=== PATIENT | female | born 1955 | race Caucasian/White ===

== ENCOUNTER 2016-06-16 05:30 | Day surgery (SDC) | payer BC ==
[2016-06-15 11:14] LABS: HEMATOCRIT 36.9 % (36.0-48.0); HEMOGLOBIN 12.2 g/dL (12-16); MCH 32.2 pg (26.0-34.0); MCHC 33.1 g/dL (31.0-37.0); MCV 97.4 fL (80.0-100.0); MEAN PLATELET VOLUME 9.4 fL (7.4-10.4); RBC 3.79 10x6/uL (4.00-5.40); RDW 12.5 % (11.5-14.5); WBC 9.2 10x3/uL (4.8-10.8)
[~2016-06-16] VITALS: Ht 165.1 cm; Wt 88.0 kg
[~2016-06-16 05:30] MED LIST: NATURE THROI PO; PROMETRIUM200 MG PO; PROTONIX40 MG PO
[2016-06-16 09:48] VITALS: BP 137/66; Ht 165.1 cm; Wt 88.0 kg
--- NOTE | 2016-06-16 13:01 | NUR ---
1300-RECEIVED PT FROM PACU AWAKE AND ALERT. VSS LEFT FOOT NUMB WITH BRISK CAP REFILL DRESSING CDI AND INTACT. ICE PACK APPLIED PT DENIES ANY N/V AND WATER GIVEN WILL CONTINUE TO MONITOR
--- NOTE | 2016-06-16 14:24 | NUR ---
IV DC WITH CATHER TIP INTACT
--- NOTE | 2016-07-18 13:17 | OP ---
PATIENT NAME: MIRIAM GARCIA MEDICAL RECORD: [id number] :57 LOCATION:D.OPS ADMISSION DATE: SURGEON: TAURUS JACOBSEN DATE OF OPERATION: 06/16/2016 SURGEON: Taurus Jacobsen DPM. PREOPERATIVE DIAGNOSIS: Raman neuroma, third intermetatarsal space, left foot. POSTOPERATIVE DIAGNOSIS: Raman neuroma, third intermetatarsal space, left foot. PROCEDURE: Excision of neuroma, left foot. ANESTHESIA: Local with monitored anesthesia care. HEMOSTASIS: Maintained on the field. ESTIMATED BLOOD LOSS: Minimal. MATERIALS: 3-0 Vicryl, 4-0 nylon. INJECTABLES: A 20 cc of 0.5% bupivacaine with epinephrine. The patient has longstanding history of pain associated with a neuroma within the third intermetatarsal space of the left foot. She is not improved with conservative care. We have discussed the surgical excision. We reviewed risks and benefits, complications were discussed, her questions were answered. She was consented for excision of neuroma, left foot. The patient was brought in the operating room and placed in the operating table in supine position. A timeout was called with Dr. Jacobsen, who identified the patient, the surgical site, and the surgery to be performed. Once appropriate anesthesia was obtained, the foot was prepped and draped in the usual aseptic manner. PROCEDURE: Excision of neuroma, left foot. Attention was directed to the dorsal aspect of the third intermetatarsal space where a 4-cm linear incision was made. This incision was carried deep through soft tissue with care being taken to retract all vital neurovascular structures. All bleeders were cauterized along the way. The deep transverse intermetatarsal ligament was then identified and sharply transected. The neuroma was then identified at this level. The nerve was then traced proximally as far possible into the intermetatarsal space and sharply transected with a fresh 15-blade. The distal aspect of the nerve was then dissected into the medial aspect of the fourth toe and the lateral aspect of the third toe. Each individual digital branches were then sharply transected. The neuroma was removed from the foot and passed from the field and it will be sent to pathology. The surgical site was then investigated for any remaining pathological tissue and none was noted. The surgical site was then irrigated with copious amounts of normal sterile saline via bulb syringe. The deep soft tissues and subQ were reapproximated and coapted utilizing 3-0 Vicryl. The skin was then reapproximated and coapted using 4-0 nylon. A OPERATIVE REPORT [id number] MIRIAM GARCIA dressing consisting of Xeroform, 4 x 4, Kerlix, and an Ernie bandage was applied to the left foot. Capillary refill time status post excision was immediate. The patient tolerated the procedure and anesthesia well and she left the operating room with vital signs stable. The patient was discharged home with instructions to ice and elevate the left foot. She will be dispensed a postop shoe to help offload the foot. She will follow up with me next week. She has my cell phone number for after hour difficulties and there were no complications with this procedure. TRANSINT:[id number] Voice Confirmation ID: [id number] DOCUMENT ID: [id number] TAURUS JACOBSEN at 1317 CC: [id number] DICTATION DATE: 06/16/16 1248 PRESCRIPTION CLERK: 06/16/16 [id number] [facility] 06/16/16 [facility] [address] [place] [address]
== END 2016-06-16 14:45 | disposition home or self-care (01) ==
LOC: D.OPS 05:30 → D.PAN 11:30 → D.OPS 11:30
PROVIDERS: Anesthesiology
DX: G57.62 Lesion of plantar nerve, left lower limb (principal)

== ENCOUNTER → 2016-12-01 16:53 | Outpatient (CLI) | payer BC ==
[2016-06-16 09:48] VITALS: BMI 32.3
== END | disposition home or self-care (01) ==
LOC: D.MAMMO 11-17 08:15
DX: Z12.31 Encounter for screening mammogram for malignant neoplasm of breast (principal)

== ENCOUNTER 2017-09-12 11:02 | Emergency (ER) | payer BC ==
[~2017-09-12] VITALS: Ht 165.1 cm; Wt 82.7 kg
[2017-09-12 11:21] VITALS: Ht 165.1 cm; Wt 82.7 kg
[2017-09-12 11:59] LABS: BASOPHILS 0.4 % (0-2); EOSINOPHILS 1.1 % (0-7); HEMATOCRIT 39.9 % (36.0-48.0); HEMOGLOBIN 13.9 g/dL (12-16); IMMATURE GRANULOCYTES 0.1 % (0-5); LYMPHOCYTES 14.5 % (15-50); MCH 29.1 pg (26.0-34.0); MCHC 34.8 g/dL (31.0-37.0); MCV 83.5 fL (80.0-100.0); MEAN PLATELET VOLUME 10.5 fL (7.4-10.4); MONOCYTES 9.9 % (2-11); RBC 4.78 10x6/uL (4.00-5.40); RDW 14.5 % (11.5-14.5); WBC 7.5 10x3/uL (4.8-10.8)
[2017-09-12 12:08] LABS: ALBUMIN 3.4 g/dL (3.4-5.0); ANION GAP 11.2 mmol/L (8-16); BILIRUBIN - TOTAL 0.43 mg/dL (0.2-1.3); CARBON DIOXIDE 26.2 mmol/L (21.0-32.0); CREATININE - SERUM 0.9 mg/dL (0.6-1.3); POTASSIUM - SERUM 4.4 mmol/L (3.5-5.1); PROTEIN - SERUM 7.1 g/dL (6.4-8.2)
[2017-09-12 12:09] LABS: APTT 28.1 SECONDS (22.8-39.4); PROTIME 12.8 SECONDS (11.6-15.0)
[2017-09-12 12:23] LABS: PLATELET COUNT 192 10x3/uL (130-400)
[2017-09-12 15:20] VITALS: BP 145/79
== END 2017-09-12 16:38 | disposition other institution (70) ==
LOC: D.ER 11:02
PROVIDERS: Family Medicine
DX: I63.9 Cerebral infarction, unspecified (principal); R47.81 Slurred speech; R53.1 Weakness; R51 Headache

== ENCOUNTER 2017-09-15 10:07 | Emergency (ER) | payer OTHER ==
[~2017-09-15] VITALS: Ht 165.1 cm; Wt 81.8 kg
[2017-09-15 10:10] VITALS: Ht 165.1 cm; Wt 81.8 kg
[2017-09-15 13:49] VITALS: BP 147/75
== END 2017-09-15 13:52 | disposition home or self-care (01) ==
LOC: D.ER 10:07
DX: Z86.73 Personal history of transient ischemic attack (TIA), and cerebral infarction without residual deficits (principal); R20.2 Paresthesia of skin; R51 Headache

== ENCOUNTER → 2018-01-02 16:53 | Outpatient (CLI) | payer OTHER | END | disposition home or self-care (01) | LOC: D.MAMMO 11:30 | DX: Z12.31 Encounter for screening mammogram for malignant neoplasm of breast (principal) ==

== ENCOUNTER 2020-06-09 15:45 | Outpatient (CLI) | payer OTHER | END 2020-06-09 23:59 | disposition home or self-care (01) | LOC: D.MAMMO 15:45 | PROVIDERS: ATTEND Clinical Nurse Specialist Adult Health | DX: Z12.31 Encounter for screening mammogram for malignant neoplasm of breast (principal) ==